=== PATIENT | female | born 1955 | race Caucasian/White ===

== ENCOUNTER → 2016-07-15 | Outpatient (CLI) | payer OTHER ==
[2016-07-15 16:35] LABS: Basophils # (A) 0.1 k/uL (0-0.2); Basophils % (A) 1 %; CHCM 32.6; Eosinophils # (A) 0.1 k/uL (0-0.7); Eosinophils % (A) 2 %; HCT 43.9 % (34.0-46.0); HDW 2.23; HGB 14.4 gm/dL (11.4-16.0); Luc # (Auto) 0.17; Luc % (Auto) 4; Lymphocytes # (A) 2.1 k/uL (1.0-4.8); Lymphocytes % (A) 45 %; MCH 31.2 pg (25.0-35.0); MCHC 32.7 g/dL (31.0-37.0); MCV 95.4 fL (80.0-100.0); Mean Platelet Volume 7.5; Monocytes # (A) 0.3 k/uL (0-1.0); Monocytes % (A) 7 %; Neutrophils % (A) 42 %; RDW 14.2 % (11.5-15.5); WBC 4.7 k/uL (3.8-10.6); WBC (Perox) 4.41
[2016-07-15 16:42] LABS: Anion Gap 10 mmol/L; Blood Urea Nitrogen 17 mg/dL (7-17); Carbon Dioxide 26 mmol/L (22-30); Chloride 107 mmol/L (98-107); Glucose 95 mg/dL (74-99); Non-African American GFR(MDRD) >60 (>60 ml/min/1.73 sqM); Potassium 4.1 mmol/L (3.5-5.1); Sodium 143 mmol/L (137-145)
[2016-07-15 16:44] LABS: Rheumatoid Factor, Qnt <9 IU/mL (<12)
[2016-07-15 17:42] LABS: Hepatitis C Virus IgG Ab Negative (Negative); Hepatitis C Virus IgG Index 0.01
[2016-07-15 19:56] LABS: Erythrocyte Sedimentation Rate 8 mm/hr (0-20)
[2016-07-16 02:00] LABS: HSV I IgG Interp POSITIVE (NEGATIVE); HSV II IgG Interp NEGATIVE (NEGATIVE)
[2016-07-16 04:32] LABS: Treponemal Ab Non-Reactive (Non-Reactive)
[2016-07-16 17:47] LABS: HIV-1/HIV-2 Ab Screen NONREAC (NON REAC)
[2016-07-17 06:16] LABS: Varicella IgM Antibody 0.29 INDEX (<=0.90)
== END | disposition home or self-care (01) ==
LOC: LABWHC1 15:55
PROVIDERS: ATTEND Internal Medicine Infectious Disease
DX: R21 Rash and other nonspecific skin eruption (principal)
CPT/HCPCS: 36415; 80048; 85025; 85652; 86431; 86694; 86695; 86696; 86780; 86787; 86803; 87340; 87389

== ENCOUNTER → 2016-10-10 | Outpatient (CLI) | payer OTHER ==
[2016-10-11 05:42] LABS: Varicella IgM Antibody 0.66 INDEX (<=0.90)
== END | disposition home or self-care (01) ==
LOC: LABWHC1 12:32
PROVIDERS: ATTEND Internal Medicine Infectious Disease
DX: R21 Rash and other nonspecific skin eruption (principal)
CPT/HCPCS: 36415; 86694; 86695; 86696; 86787

== ENCOUNTER 2017-02-11 08:12 | Day surgery (SDC) | payer OTHER ==
[~2017-02-11 08:12] MED LIST: PREMYELOGRAM MEDICATION REVIEW 1 EACH MISC PO NR
[2017-02-11 08:42] VITALS: RESP 16
[2017-02-11] MEDS ORDERED: ATROPINE SULFATE 0.1 MG/ML 10ML SYRINGE IV STA (09:40)
[2017-02-11] MEDS ORDERED: SODIUM CHLORIDE 0.9% 1,000 ML IV SCH (10:00)
--- NOTE | 2017-02-11 10:33 | FL ---
EXAMINATION TYPE: FL myelogram lumbosacral DATE OF EXAM: 02/11/2017 COMPARISON: NONE available at this location. HISTORY: Continued low back pain, prior surgery The procedure was explained to the patient, the risks complications and benefits. All questions were answered. Written and verbal informed consent was obtained. A timeout was performed. The L4-5 level was localized. Under full sterile technique a skin was cleansed with Betadine and the area anesthetized with 1% lidocaine. A 22-gauge spinal needle was placed. Prior to thecal sac access the patient became vagal with bradycardia. The procedure was halted and Tr endelenburg, oxygen and cool rags were administered. Patient remained bradycardic and 0.5 mg atropine was administered intravenously. Patient's heart rate returned to her normal range. The spinal need le was withdrawn. The procedure was aborted at this point. Patient was transferred to a rney and stayed within the hospital for monitoring. IMPRESSION: 1. Procedure was terminated during the examination. No diagnostic information was obtained.
[2017-02-11 14:02] VITALS: BP 101/62
[2017-02-11 14:13] VITALS: PULSE 62
== END 2017-02-11 14:12 | disposition home or self-care (01) ==
LOC: RADPROMAIN 08:12
PROVIDERS: ATTEND Neurological Surgery
DX: M47.26 Other spondylosis with radiculopathy, lumbar region (principal); Z53.8 Procedure and treatment not carried out for other reasons; Z68.26 Body mass index [BMI] 26.0-26.9, adult; M51.26 Other intervertebral disc displacement, lumbar region; R00.1 Bradycardia, unspecified; Z95.1 Presence of aortocoronary bypass graft; M79.7 Fibromyalgia; E07.9 Disorder of thyroid, unspecified; F32.9 Major depressive disorder, single episode, unspecified; Z79.899 Other long term (current) drug therapy; Z88.8 Allergy status to other drugs, medicaments and biological substances
CPT/HCPCS: 96374; 62304; Q9965; J0461; 62284

== ENCOUNTER 2017-03-19 08:31 | Day surgery (SDC) | payer OTHER ==
[~2017-03-19 08:31] MED LIST changes: -PREMYELOGRAM MEDICATION REVIEW 1 EACH MISC PO NR; +PREMYELOGRAM MEDICATION REVIEW 1 EACH MISC PO ONE
[2017-03-19] MEDS ORDERED: HYDROcodone/APAP 5-325MG 1 EACH TAB PO PRN (10:15)
--- NOTE | 2017-03-19 10:55 | CT ---
EXAMINATION TYPE: CT lumbar spine w con, FL myelogram lumbosacral DATE OF EXAM: 03/19/2017 COMPARISON: NONE HISTORY: Lower back pain. Prior fusion and lumbar laminectomy. Lumbar myelography was performed under fluoroscopic guidance. 1.25 minutes of fluoroscopic time was u tilized and 5 spot images submitted. Informed consent was obtained and all the patient's questions were answered. Utilizing standard ster ile technique the L2-3 level was localized utilizing a paraspinal approach. Appropriate local anesthe gemini was obtained with 1% lidocaine. Spinal needle was introduced into the thecal sac and 10 cc of Omn ipaque 240 was injected. The patient tolerated the procedure well and was sent to the CT suite withou t complication. Post myelogram CT: Post myelogram CT of the lumbar spine. Axial soft tissue window and bone window settings are submitte d. Reconstruction is obtained in the sagittal and coronal planes. L1-L2: Mild degenerative disc space narrowing. Circumferential disc bulge greatest posteriorly with m ild effacement of the ventral thecal sac. No evidence for central stenosis. Mild right foraminal encr oachment noted. Left neural foramen is patent. L2-L3: Mild degenerative disc space narrowing. Circumferential disc bulge [id number] in degree. Effacement of the ventral thecal sac with bilateral lateral recess stenosis. Constriction of the the luz marina sac without overt stenosis at this time. Mild right foraminal encroachment. L3-L4: Mild degenerative disc space narrowing. Circumferential disc bulge [id number] in degree. Effacement of the ventral thecal sac with bilateral lateral recess stenosis. Constriction of the the luz marina sac without overt stenosis at this time. Mild right foraminal encroachment. L4-L5: Postoperative changes of fusion with intervertebral body spacer in place. Pedicular screws are noted. Decompressive laminectomy. Alignment is anatomic. No evidence for recurrent or residual disc herniation or central stenosis. Streak artifact limits evaluation. L5-S1: Moderate disc space narrowing. No disc herniation protrusion or central stenosis. No facet luis eduardo int arthropathy. No evidence for foraminal encroachment. No paraspinal masses are identified. Lumbar segments are free of fracture. IMPRESSION: 1. Degenerative disc disease as discussed. 2. Posterior disc bulging with effacement of the ventral thecal sac greatest at L2-3 and L3-4 where t here is bilateral lateral recess stenosis. Constriction of the thecal sac without overt central steno sis at this time. 3. Postoperative changes as discussed. 1.
[2017-03-19 12:21] VITALS: BP 94/60; PULSE 55; RESP 16; TEMP 97.5
== END 2017-03-19 15:08 | disposition home or self-care (01) ==
LOC: RADPROMAIN 08:31 → 3OBS 10:20 → RADPROMAIN 15:08
PROVIDERS: ATTEND Neurological Surgery
DX: M51.36 Other intervertebral disc degeneration, lumbar region (principal); M51.26 Other intervertebral disc displacement, lumbar region; M48.06 Spinal stenosis, lumbar region; Z98.1 Arthrodesis status; J45.909 Unspecified asthma, uncomplicated; Z87.891 Personal history of nicotine dependence; M79.7 Fibromyalgia; F32.9 Major depressive disorder, single episode, unspecified; E07.9 Disorder of thyroid, unspecified; Z79.899 Other long term (current) drug therapy; Z88.8 Allergy status to other drugs, medicaments and biological substances
CPT/HCPCS: 36415; 62304; 72132; Q9966; 62284

== ENCOUNTER 2019-09-07 00:29 | Emergency (ER) | payer OTHER ==
[2019-09-07] MEDS ORDERED: SODIUM CHLORIDE 0.9% 1,000 ML IV STA (00:37)
--- NOTE | 2019-09-07 00:39 | ED ---
General Adult HPI - General Chief complaint: Eye Problems Stated complaint: Weakness, confusion Time Seen by Provider: 09/07/19 00:30 Source: patient, EMS Mode of arrival: EMS Limitations: no limitations - History of Present Illness Initial comments: Dictation was produced using [employer]aZO[employer] dictation software. please excuse any grammatical, word or spelling errors. Chief Complaint: 64-year-old field past medical history of back problems pr esents with paranoia History of Present Illness: 4-year-old female she states she's been paranoid at home. Patient reports that today she was afraid to go to her house. She states that she was brought in by EMS. She initially called law enforcement to her house to check set of her house. She feels as though there are microphones or cameras that her watching her. Patient is also hearing voices. She denies any suicidal or homicidality. Patient states she feels dehydrated. She however reports that she has been eating. Denies any psychiatric history. The ROS documented in this emergency department record has been reviewed and confirmed by me. Those systems with pertinent positive or negative responses have been documented in the HPI. All other systems are other negative and/or no ncontributory. PHYSICAL EXAM: General Impression: Alert and oriented x3, not in acute distress HEENT: Normocephalic atraumatic, extra-ocular movements intact, pupils equal and reactive to light bilaterally, mucous membranes moist. Cardiovascular: Heart regular rate and rhythm, S1&S2 audible, no murmurs, rubs or gallops Chest: Lungs clear to auscultation bilaterally, no rhonchi, no wheeze, no rales Abdomen: Bowel sounds present, abdomen soft, non-tender, non-distended, no organomegaly Musculoskeletal: Pulses present and equal in all extremities, no peripheral edema Motor: no focal deficits noted Neurological: CN II-XII grossly intact, no focal motor or sensory deficits noted Skin: Intact with no visualized rashes Psych: Anxious ED course: 64-year-old female presents for psychiatric evaluation. Vital signs upon arrival are within acceptable limits. Physical examination is benign. Laboratory evaluation obtained. CBC, metabolic panel is unremarkable. Urine drug screen is positive for benzos. Alcohol is negative. Patient is medically cleared. EPS evaluation patient provided safety plan measures. She was cleared for discharge for psychiatry. Patient complaining of some left eyelid pain. There was some erythema to bilateral eyelids. Clinical presentation concerning for blepharitis. Patient given erythromycin ointment to apply to the eyelids. She is given follow-up with digital tech. - Related Data Home Medications Medication Instructions Recorded Confirmed ALPRAZolam [Xanax] 0.5 mg PO DAILY PRN 02/03/17 03/19/17 Celecoxib [CeleBREX] 200 mg PO DAILY 02/03/17 03/19/17 Cyclobenzaprine [Flexeril] 10 mg PO DAILY 02/03/17 03/03/17 Diazepam [Valium] 5 mg PO TID 02/03/17 03/03/17 Ferrous Sulfate [Feosol] 28 mg PO DAILY 02/03/17 03/03/17 Levothyroxine Sodium [Synthroid] 50 mcg PO DAILY 02/03/17 03/03/17 Loratadine [Claritin] 10 mg PO HS 02/03/17 03/03/17 Lysine [l-Lysine] 500 mg PO DAILY 02/03/17 03/03/17 Modafinil [Provigil] 200 mg PO DAILY 02/03/17 03/03/17 Multivitamin/Iron/Folic Acid 1 each PO DAILY 02/03/17 03/03/17 [Centrum Adults Tablet] Topiramate [Topamax] 200 mg PO HS 02/03/17 03/03/17 Zinc 50 mg PO DAILY 02/03/17 03/03/17 Previous Rx's Medication Instructions Recorded Erythromycin Ophth Oint [Romycin 1 applic BOTH EYES BID #1 bottle 09/07/19 Ophth Oint] Allergies Allergy/AdvReac Type Severity Reaction Status Date / Time prednisone Allergy Rash/Hives Verified 03/19/17 09:16 Review of Systems ROS Statement: Those systems with pertinent positive or pertinent negative responses have been documented in the HPI. ROS Other: All systems not noted in ROS Statement are negative. Past Medical History Past Medical History: Fibromyalgia, GERD/Reflux, Thyroid Disorder Additional Past Medical History / Comment(s): shingles x3 History of Any Multi-Drug Resistant Organisms: None Reported Past Surgical History: Back Surgery, Tubal Ligation Additional Past Surgical History / Comment(s): 4 back related surgeries in last 2 years per pt. cervical fusion 2006 x2. laminectomy and fusion x2, Stenosis run in family per pt. laproscopic surgery due to miscarriages Past Anesthesia/Blood Transfusion Reactions: Postoperative Nausea & Vomiting (PONV) Past Psychological History: Anxiety, Depression Smoking Status: Former smoker Past Alcohol Use History: None Reported Past Drug Use History: None Reported - Past Family History Father Additional Family Medical History / Comment(s): spinal stenosis General Exam Limitations: no limitations Course Vital Signs 09/07/19 09/07/19 00:31 03:02 Temperature 97.4 F L 97.6 F Pulse Rate 76 75 Respiratory 20 16 Rate Blood Pressure 154/94 146/91 O2 Sat by Pulse 100 99 Oximetry Medical Decision Making - Lab Data Result diagrams: 09/07/19 01:06 09/07/19 01:06 Lab Results 09/07/19 09/07/19 09/07/19 Range/Units 01:06 01:06 01:06 WBC 7.6 (3.8-10.6) k/uL RBC 4.74 (3.80-5.40) m/uL Hgb 14.8 (11.4-16.0) gm/dL Hct 44.3 (34.0-46.0) % MCV 93.4 (80.0-100.0) fL MCH 31.3 (25.0-35.0) pg MCHC 33.5 (31.0-37.0) g/dL RDW 12.9 (11.5-15.5) % Plt Count 175 (150-450) k/uL Neutrophils % 85 % Lymphocytes % 11 % Monocytes % 4 % Eosinophils % 0 % Basophils % 0 % Neutrophils # 6.4 (1.3-7.7) k/uL Lymphocytes # 0.8 L (1.0-4.8) k/uL Monocytes # 0.3 (0-1.0) k/uL Eosinophils # 0.0 (0-0.7) k/uL Basophils # 0.0 (0-0.2) k/uL Sodium 137 (137-145) mmol/L Potassium 4.5 (3.5-5.1) mmol/L Chloride 101 (98-107) mmol/L Carbon Dioxide 29 (22-30) mmol/L Anion Gap 7 mmol/L BUN 17 (7-17) mg/dL Creatinine 0.45 L (0.52-1.04) mg/dL Est GFR (CKD-EPI)AfAm >90 (>60 ml/min/1.73 sqM) Est GFR (CKD-EPI)NonAf >90 (>60 ml/min/1.73 sqM) Glucose 146 H (74-99) mg/dL Calcium 9.4 (8.4-10.2) mg/dL Urine Opiates Screen (NotDetected) Ur Oxycodone Screen (NotDetected) Urine Methadone Screen (NotDetected) Ur Propoxyphene Screen (NotDetected) Ur Barbiturates Screen (NotDetected) U Tricyclic Antidepress (NotDetected) Ur Phencyclidine Scrn (NotDetected) Ur Amphetamines Screen (NotDetected) U Methamphetamines Scrn (NotDetected) U Benzodiazepines Scrn (NotDetected) Urine Cocaine Screen (NotDetected) U Marijuana (THC) Screen (NotDetected) Serum Alcohol <10 mg/dL 09/07/19 Range/Units 02:06 WBC (3.8-10.6) k/uL RBC (3.80-5.40) m/uL Hgb (11.4-16.0) gm/dL Hct (34.0-46.0) % MCV (80.0-100.0) fL MCH (25.0-35.0) pg MCHC (31.0-37.0) g/dL RDW (11.5-15.5) % Plt Count (150-450) k/uL Neutrophils % % Lymphocytes % % Monocytes % % Eosinophils % % Basophils % % Neutrophils # (1.3-7.7) k/uL Lymphocytes # (1.0-4.8) k/uL Monocytes # (0-1.0) k/uL Eosinophils # (0-0.7) k/uL Basophils # (0-0.2) k/uL Sodium (137-145) mmol/L Potassium (3.5-5.1) mmol/L Chloride (98-107) mmol/L Carbon Dioxide (22-30) mmol/L Anion Gap mmol/L BUN (7-17) mg/dL Creatinine (0.52-1.04) mg/dL Est GFR (CKD-EPI)AfAm (>60 ml/min/1.73 sqM) Est GFR (CKD-EPI)NonAf (>60 ml/min/1.73 sqM) Glucose (74-99) mg/dL Calcium (8.4-10.2) mg/dL Urine Opiates Screen Not Detected (NotDetected) Ur Oxycodone Screen Not Detected (NotDetected) Urine Methadone Screen Not Detected (NotDetected) Ur Propoxyphene Screen Not Detected (NotDetected) Ur Barbiturates Screen Not Detected (NotDetected) U Tricyclic Antidepress Not Detected (NotDetected) Ur Phencyclidine Scrn Not Detected (NotDetected) Ur Amphetamines Screen Not Detected (NotDetected) U Methamphetamines Scrn Not Detected (NotDetected) U Benzodiazepines Scrn Detected H (NotDetected) Urine Cocaine Screen Not Detected (NotDetected) U Marijuana (THC) Screen Not Detected (NotDetected) Serum Alcohol mg/dL Disposition Clinical Impression: Paranoia, Blepharitis Disposition: HOME SELF-CARE Condition: Good Instructions (If sedation given, give patient instructions): Blepharitis (ED) Prescriptions: Erythromycin Ophth Oint [Romycin Ophth Oint] 1 applic BOTH EYES BID #1 bottle Is patient prescribed a controlled substance at d/c from ED?: No Referrals: Rodolfo Mendez MD [STAFF PHYSICIAN] - 1-2 days Time of Disposition: 05:29
[2019-09-07 01:14] LABS: Basophils % (A) 0 %; Eosinophils % (A) 0 %; HCT 44.3 % (34.0-46.0); HGB 14.8 gm/dL (11.4-16.0); Lymphocytes # (A) 0.8 k/uL (1.0-4.8); Lymphocytes % (A) 11 %; MCH 31.3 pg (25.0-35.0); MCHC 33.5 g/dL (31.0-37.0); MCV 93.4 fL (80.0-100.0); Mean Platelet Volume 8.3; Monocytes # (A) 0.3 k/uL (0-1.0); Monocytes % (A) 4 %; Neutrophils # (A) 6.4 k/uL (1.3-7.7); Neutrophils % (A) 85 %; Platelet Count 175 k/uL (150-450); RBC 4.74 m/uL (3.80-5.40); RDW 12.9 % (11.5-15.5); WBC 7.6 k/uL (3.8-10.6)
[2019-09-07 01:23] LABS: African American GFR (CKD) >90 (>60 ml/min/1.73 sqM); Anion Gap 7 mmol/L; Blood Urea Nitrogen 17 mg/dL (7-17); Calcium 9.4 mg/dL (8.4-10.2); Carbon Dioxide 29 mmol/L (22-30); Chloride 101 mmol/L (98-107); Glucose 146 mg/dL (74-99); Non-African American GFR(CKD) >90 (>60 ml/min/1.73 sqM); Potassium 4.5 mmol/L (3.5-5.1); Sodium 137 mmol/L (137-145)
[2019-09-07 02:48] LABS: Amphetamine Screen,Urine Not Detected (NotDetected); Barbiturate Screen,Urine Not Detected (NotDetected); Benzodiazepines Screen,Urine Detected (NotDetected); Cocaine Screen,Urine Not Detected (NotDetected); Methadone Screen, Urine Not Detected (NotDetected); Opiate Screen,Urine Not Detected (NotDetected); Oxycodone Screen, Urine Not Detected (NotDetected); Phencyclidine Screen,Urine Not Detected (NotDetected); Tricyclic Antidepressant,Urine Not Detected (NotDetected); Urn Cannabinoid Scrn Not Detected (NotDetected)
[2019-09-07 03:03] VITALS: BP 146/91; PULSE 75; RESP 16; TEMP 97.6
[2019-09-07] MEDS ORDERED: ACETAMINOPHEN TAB 500 MG TAB PO STA (03:53)
--- NOTE | 2019-09-07 05:23 | CT ---
EXAMINATION TYPE: CT brain wo con DATE OF EXAM: 09/07/2019 COMPARISON: None HISTORY: Confusion CT DLP: 1098.4 mGycm Automated exposure control for dose reduction was used. Ventricles have normal size. There is no mass effect nor midline shift. There is no sign of intracran ial hemorrhage. The calvarium is intact. There is no evidence of cerebral edema. IMPRESSION: Negative unenhanced head CT scan.
[2019-09-07] MEDS ORDERED: ERYTHROMYCIN 5 MG/GM OPHTH OINT 3.5 GM TUBE BOTH EYES STA (05:43)
== END 2019-09-07 06:25 | disposition home or self-care (01) ==
LOC: EC 00:29
DX: F22 Delusional disorders (principal); H01.006 Unspecified blepharitis left eye, unspecified eyelid; F41.9 Anxiety disorder, unspecified; F32.9 Major depressive disorder, single episode, unspecified; R82.5 Elevated urine levels of drugs, medicaments and biological substances; M79.7 Fibromyalgia; E07.9 Disorder of thyroid, unspecified; Z87.891 Personal history of nicotine dependence; Z88.8 Allergy status to other drugs, medicaments and biological substances; Z79.1 Long term (current) use of non-steroidal anti-inflammatories (NSAID); Z79.890 Hormone replacement therapy; Z79.899 Other long term (current) drug therapy; Z98.1 Arthrodesis status
CPT/HCPCS: 36415; 70450; 80048; 80306; 80320; 85025; 96360; 99285

== ENCOUNTER 2019-10-21 10:35 | Emergency (ER) | payer OTHER ==
--- NOTE | 2019-10-21 10:55 | ED ---
General Adult HPI - General Stated complaint: Mental health Time Seen by Provider: 10/21/19 10:38 Source: patient, EMS, RN notes reviewed - History of Present Illness Initial comments: 64-year-old female with a past medical history of fibromyalgia, GERD, thyroid disorder presents to the emergency department for psychiatric evaluation. Patient was apparently doing about 50 donuts in a parking lot when the police were called. EMS was then called because there is concerns for psychiatric problems. Patient denies taking any psychiatric medications but EMS does state she was flagged as an emotionally disturbed individual for them. Patient's speech is very pressured and tangential. She is talking about receiving threats from her family as well as talking about her marriage, and pastors calling her at home. She states that she feels "fine."Patient has no other complaints at this time including shortness of breath, chest pain, abdominal pain, nausea or vomiting, headache, or visual changes. - Related Data Home Medications Medication Instructions Recorded Confirmed Celecoxib [CeleBREX] 200 mg PO DAILY 02/03/17 10/21/19 Cyclobenzaprine [Flexeril] 10 mg PO TID PRN 02/03/17 10/21/19 Loratadine [Claritin] 10 mg PO HS 02/03/17 10/21/19 Modafinil [Provigil] 200 mg PO DAILY 02/03/17 10/21/19 Zinc 50 mg PO DAILY 02/03/17 10/21/19 Ascorbic Acid [Vitamin C] 1,000 mg PO DAILY 10/21/19 10/21/19 Calcium Carbonate/Vitamin D3 1 tab PO DAILY 10/21/19 10/21/19 [Calcium 600-Vit D3 800 Caplet] Cholecalciferol [Vitamin D3 (25 2,000 unit PO DAILY 10/21/19 10/21/19 Mcg = 1000 Iu)] Ferrous Sulfate [Slow Fe] 142 mg PO DAILY 10/21/19 10/21/19 Ibuprofen [Motrin Ib] 400 mg PO Q8H PRN 10/21/19 10/21/19 Levothyroxine Sodium [Synthroid] 100 mcg PO DAILY 10/21/19 10/21/19 Magnesium Oxide [Magox 400] 400 mg PO DAILY 10/21/19 10/21/19 Topiramate [Topamax] 200 mg PO HS 10/21/19 10/21/19 Vitamin A 8,000 unit PO DAILY 10/21/19 10/21/19 Vitamin B Complex 1 cap PO DAILY 10/21/19 10/21/19 Allergies Allergy/AdvReac Type Severity Reaction Status Date / Time prednisone Allergy Rash/Hives Verified 10/21/19 12:27 Review of Systems ROS Statement: Those systems with pertinent positive or pertinent negative responses have been documented in the HPI. ROS Other: All systems not noted in ROS Statement are negative. Past Medical History Past Medical History: Fibromyalgia, GERD/Reflux, Thyroid Disorder Additional Past Medical History / Comment(s): shingles x3 History of Any Multi-Drug Resistant Organisms: None Reported Past Surgical History: Back Surgery, Tubal Ligation Additional Past Surgical History / Comment(s): 4 back related surgeries in last 2 years per pt. cervical fusion 2006 x2. laminectomy and fusion x2, Stenosis run in family per pt. laproscopic surgery due to miscarriages Past Anesthesia/Blood Transfusion Reactions: Postoperative Nausea & Vomiting (PONV) Past Psychological History: Anxiety, Depression Smoking Status: Former smoker Past Alcohol Use History: None Reported Past Drug Use History: None Reported - Past Family History Father Additional Family Medical History / Comment(s): spinal stenosis General Exam General appearance: alert, anxious Head exam: Present: atraumatic, normocephalic, normal inspection Eye exam: Present: normal appearance, PERRL, EOMI. Absent: scleral icterus, conjunctival injection, periorbital swelling ENT exam: Present: normal exam, mucous membranes moist Neck exam: Present: normal inspection, full ROM. Absent: tenderness, meningismus, lymphadenopathy Respiratory exam: Present: normal lung sounds bilaterally. Absent: respiratory distress, wheezes, rales, rhonchi, stridor Cardiovascular Exam: Present: regular rate, normal rhythm, normal heart sounds. Absent: systolic murmur, diastolic murmur, rubs, gallop, clicks GI/Abdominal exam: Present: soft, normal bowel sounds. Absent: distended, tenderness, guarding, rebound, rigid Psychiatric exam: Present: manic Course Vital Signs 10/21/19 10:58 Temperature 99.1 F Pulse Rate 89 Respiratory 20 Rate Blood Pressure 133/98 O2 Sat by Pulse 100 Oximetry Medical Decision Making - Medical Decision Making Patient was evaluated by EPS, recommending inpatient management. Certification filled out by Dr. Marrero. [facility] Laboratory evaluation was added by EPS nurse. - Lab Data Lab Results 10/21/19 Range/Units 11:08 Urine Opiates Screen Not Detected (NotDetected) Ur Oxycodone Screen Not Detected (NotDetected) Urine Methadone Screen Not Detected (NotDetected) Ur Propoxyphene Screen Not Detected (NotDetected) Ur Barbiturates Screen Not Detected (NotDetected) U Tricyclic Antidepress Not Detected (NotDetected) Ur Phencyclidine Scrn Not Detected (NotDetected) Ur Amphetamines Screen Not Detected (NotDetected) U Methamphetamines Scrn Not Detected (NotDetected) U Benzodiazepines Scrn Not Detected (NotDetected) Urine Cocaine Screen Not Detected (NotDetected) U Marijuana (THC) Screen Not Detected (NotDetected) Disposition Clinical Impression: Acute psychosis Disposition: TRANSFER TO PSYCH HOSP/UNIT Condition: Fair Is patient prescribed a controlled substance at d/c from ED?: No Referrals: [facility],Clinic [Primary Care Provider] - 1-2 days Time of Disposition: 12:28
[2019-10-21 11:40] LABS: Amphetamine Screen,Urine Not Detected (NotDetected); Barbiturate Screen,Urine Not Detected (NotDetected); Benzodiazepines Screen,Urine Not Detected (NotDetected); Cocaine Screen,Urine Not Detected (NotDetected); Methadone Screen, Urine Not Detected (NotDetected); Opiate Screen,Urine Not Detected (NotDetected); Oxycodone Screen, Urine Not Detected (NotDetected); Phencyclidine Screen,Urine Not Detected (NotDetected); Tricyclic Antidepressant,Urine Not Detected (NotDetected); Urn Cannabinoid Scrn Not Detected (NotDetected)
[2019-10-21] MEDS ORDERED: LORazepam 1 MG TAB PO STA ×2 (12:13→18:31)
[2019-10-21 14:07] LABS: Amorphous Sediment,Urine Few /hpf; Appearance,Urine Turbid (Clear); Bacteria,Urine Rare /hpf; Bilirubin,Urine Negative (Negative); Blood,Urine Negative (Negative); Color,Urine Yellow; Glucose,Urine (UA) Negative (Negative); Ketones,Urine Negative (Negative); Leukocyte Esterase,Urine Small (Negative); Mucus,Urine Rare /hpf; Nitrite,Urine Positive (Negative); Protein,Urine Trace (Negative); RBC,Urine 2 /hpf (0-5); Specific Gravity,Urine 1.018 (1.001-1.035); Squamous Epithelial Cell,Urine 1 /hpf (0-4); Urobilinogen,Urine <2.0 mg/dL (<2.0); WBC,Urine 10 /hpf (0-5)
[2019-10-21 14:09] LABS: Basophils # (A) 0.1 k/uL (0-0.2); Basophils % (A) 1 %; Eosinophils # (A) 0.1 k/uL (0-0.7); Eosinophils % (A) 1 %; HCT 40.8 % (34.0-46.0); HGB 13.3 gm/dL (11.4-16.0); Lymphocytes # (A) 1.8 k/uL (1.0-4.8); Lymphocytes % (A) 30 %; MCHC 32.5 g/dL (31.0-37.0); MCV 95.3 fL (80.0-100.0); Mean Platelet Volume 8.6; Monocytes # (A) 0.5 k/uL (0-1.0); Monocytes % (A) 8 %; Neutrophils # (A) 3.3 k/uL (1.3-7.7); Neutrophils % (A) 56 %; Platelet Count 206 k/uL (150-450); RBC 4.28 m/uL (3.80-5.40)
[2019-10-21 14:19] LABS: ALT 14 U/L (4-34); AST 23 U/L (14-36); African American GFR (CKD) >90 (>60 ml/min/1.73 sqM); Albumin 3.8 g/dL (3.5-5.0); Alkaline Phosphatase 111 U/L (38-126); Anion Gap 7 mmol/L; Blood Urea Nitrogen 16 mg/dL (7-17); Calcium 9.3 mg/dL (8.4-10.2); Carbon Dioxide 28 mmol/L (22-30); Chloride 104 mmol/L (98-107); Glucose 92 mg/dL (74-99); Non-African American GFR(CKD) >90 (>60 ml/min/1.73 sqM); Potassium 3.1 mmol/L (3.5-5.1); Sodium 139 mmol/L (137-145); Total Bilirubin 0.6 mg/dL (0.2-1.3); Total Protein 6.4 g/dL (6.3-8.2)
[2019-10-22 05:21] VITALS: RESP 16; TEMP 97.9
[2019-10-22 08:35] VITALS: BP 118/69; PULSE 71
== END 2019-10-22 08:35 ==
LOC: EC 10:35
DX: F23 Brief psychotic disorder (principal); E07.9 Disorder of thyroid, unspecified; F41.9 Anxiety disorder, unspecified; F31.9 Bipolar disorder, unspecified; Z79.1 Long term (current) use of non-steroidal anti-inflammatories (NSAID); Z79.890 Hormone replacement therapy; Z79.899 Other long term (current) drug therapy; Z88.8 Allergy status to other drugs, medicaments and biological substances; Z87.891 Personal history of nicotine dependence
CPT/HCPCS: 36415; 80053; 80306; 81001; 82075; 85025; 87635; 99285

== ENCOUNTER → 2020-09-01 | Outpatient (CLI) | payer OTHER ==
--- NOTE | 2020-09-04 11:19 | MM ---
Reason for exam: screening (asymptomatic). Last mammogram was performed 5 years and 6 months ago. Physical Findings: A clinical breast exam by your physician is recommended on an annual basis and results should be correlated with mammographic findings. MG Screening Mammo w CAD Bilateral CC and MLO view(s) were taken. Prior study comparison: March 08, 2015, mammogram, performed at [facility]. June 21, 2013, mammogram, performed at [facility]. The breast tissue is heterogeneously dense. This may lower the sensitivity of mammography. Focal asymmetry central right breast for which additional views recommended. ASSESSMENT: Incomplete: need additional imaging evaluation, BI-RAD 0 RECOMMENDATION: Special view mammogram of the right breast. (3D) If lesion persists on supplemental views, image directed ultrasound is recommended. [facility] will attempt to contact patient to return for supplemental views and ultrasound if indicated.
== END | disposition home or self-care (01) ==
LOC: RADMAMWWP 10:54
PROVIDERS: ATTEND Family Medicine
DX: Z12.31 Encounter for screening mammogram for malignant neoplasm of breast (principal)
CPT/HCPCS: 77067

== ENCOUNTER → 2020-10-13 | Outpatient (CLI) | payer OTHER ==
--- NOTE | 2020-10-13 12:26 | MM ---
Reason for exam: additional evaluation requested from abnormal screening. Last mammogram was performed 1 month ago. History: Patient is postmenopausal. Physical Findings: Nurse did not find any significant physical abnormalities on exam. MG Work Up Mamm w CAD RT Spot compression CC, spot compression MLO, and LM view(s) were taken of the right breast. Prior study comparison: September 01, 2020, bilateral MG screening mammo w CAD. March 08, 2015, mammogram, performed at [facility]. The breast tissue is heterogeneously dense. This may lower the sensitivity of mammography. Some vague central density remains on the CC view with spot compression, less defined from the initial screening exam. No clear persisting abnormality on spot MLO. These results were verbally communicated with the patient and result sheet given to the patient on 10/13/20. ASSESSMENT: Incomplete: need additional imaging evaluation, BI-RAD 0 RECOMMENDATION: Ultrasound of the right breast. (12-1 o'clock and 5-6 o'clock)
--- NOTE | 2020-10-13 12:27 | USB ---
Reason for exam: additional evaluation requested from abnormal screening. History: Patient is postmenopausal. US Breast Workup Limited RT Technologist: Hannah Au Right limited breast ultrasound including focal area of concern, retroareolar and axilla demonstrates no cystic or solid lesion seen. Scanned 12-1 o'clock and 5-6 o'clock. These results were verbally communicated with the patient and result sheet given to the patient on 10/13/20. ASSESSMENT: Probably benign, BI-RAD 3 RECOMMENDATION: Follow-up diagnostic mammogram of the right breast in 6 months.
== END | disposition home or self-care (01) ==
LOC: RADMAMWWP 10:26
DX: R92.2 Inconclusive mammogram (principal)
CPT/HCPCS: 77065

== ENCOUNTER → 2021-04-17 | Outpatient (CLI) | payer OTHER ==
--- NOTE | 2021-04-17 11:50 | MM ---
Reason for exam: follow-up at short interval from prior study. Last mammogram was performed 6 months ago. History: Patient is postmenopausal. Took hormonal contraceptives for 12 years. Physical Findings: Nurse did not find any significant physical abnormalities on exam. MG Diagnostic Mammo RT w CAD CC and MLO view(s) were taken of the right breast. Prior study comparison: September 01, 2020, bilateral MG screening mammo w CAD. The breast tissue is heterogeneously dense. This may lower the sensitivity of mammography. There is no discrete abnormality. These results were verbally communicated with the patient and result sheet given to the patient on 04/17/21. ASSESSMENT: Negative, BI-RAD 1 RECOMMENDATION: Return to routine screening mammogram schedule for both breasts. Back on schedule for September 2021.
== END | disposition home or self-care (01) ==
LOC: RADMAMWWP 11:03
PROVIDERS: ATTEND Nurse Practitioner Acute Care
DX: R92.8 Other abnormal and inconclusive findings on diagnostic imaging of breast (principal)
CPT/HCPCS: 77065

== ENCOUNTER → 2023-01-23 | Outpatient (CLI) | payer OTHER ==
--- NOTE | 2023-01-23 14:56 | BD ---
EXAMINATION TYPE: Axial Bone Density DATE OF EXAM: 01/23/2023 CLINICAL HISTORY: 67 years old Female. ICD-10 CODE: M81.6 OSTEOPOROSIS Height: 5 ft 6in Weight: 151 FRAX RISK QUESTIONS: Alcohol (3 or more units per day): no Family History (Parent hip fracture): yes Glucocorticoids (More than 3mos): no (Ex: prednisone, prednisolone, methylprednisolone, dexamethasone, and hydrocortisone). History of Fracture in Adulthood: yes Secondary Osteoporosis: 1. Type 1 Diabetes: no 2. Hyperthyroidism: no 3. Menopause before 45: no 4. Malnutrition: no 5. Chronic liver disease: no Rheumatoid Arthritis: yes Current Tobacco Use: no RISK FACTORS HISTORY OF: Surgery to Spine/Hip(right/left)/Wrist (right/left): lumbar surg nd 2015 Family History of Osteoporosis: no Active: yes Diet low in dairy products/other sources of calcium: no Postmenopausal woman: yes Take estrogen and/or progesterone medications: no Lost more than 2 inches in height since high school: yes Frequent falls: no Poor Health: good Hyperparathyroidism: no Adrenal Insufficiency: no MEDICATIONS: Thyroid Medications: yes Which medication: synthroid How Long: approx 6-10 years Additional Medications: synthroid, Baclofen, claritan, modafinel Additional History: EXAM MEASUREMENTS: Bone mineral density about the R hip (g/cm2): 0.675 Bone mineral density about the L hip (g/cm2): 0.653 T Score values are as follows: -----R Neck: -2.6 -----L Neck: -2.8 -----R Total: -2.9 -----L Total: -2.9 Z Score values are as follows: -----R Neck: -1.1 -----L Neck: -1.3 -----R Total: -1.7 -----L Total: -1.7 baseline Bone mineral density about the L Wrist (g/cm2): 0.501 T Score values are as follows: -----Dist. R+U: -3.3 -----Prox. R+U: -2.3 -----Radius total: -2.9 Z Score values are as follows: -----Dist. R+U: -1.8 -----Prox. R+U: -0.8 -----Radius total: -1.3 baseline FRAX%s: The graph provided illustrates a 39.4 % chance for a major osteoporotic fx and a 9.2 % chance for the hips probability for fx in 10 years time. IMPRESSION: Osteoporosis (T Score less than -2.5). There is increased fracture risk and therapy is usually indicated based on age. Re-Screen 1-2 years. NOTE: T-SCORE=SD OF THE YOUNG ADULT MEAN.
== END | disposition home or self-care (01) ==
LOC: RADBDWWP 11:10
DX: M81.6 Localized osteoporosis [Lequesne] (principal); M85.841 Other specified disorders of bone density and structure, right hand; Z78.0 Asymptomatic menopausal state
CPT/HCPCS: 77080

== ENCOUNTER → 2024-01-14 | Outpatient (CLI) | payer OTHER ==
--- NOTE | 2024-01-15 09:30 | MM ---
Reason for Exam: Screening (asymptomatic). Last mammogram was performed 3 year(s) and 4 month(s) ago. Patient History: Menarche at age 16. First Full-Term at age 22. Postmenopausal. Patient used Hormonal Contraceptives for 12 years. Risk Values: Luana 5 year model risk: 1.4%. NCI Lifetime model risk: 4.8%. Prior Study Comparison: 09/01/2020 Bilateral Screening Mammogram, [facility]. 10/13/2020 Right Diagnostic Mammogram, [facility]. 04/17/2021 Right Diagnostic Mammogram, [facility]. Tissue Density: The breasts are heterogeneously dense, which may obscure small masses. Findings: Analyzed By CAD. There is no suspicious group of microcalcifications. There is nodular densities in the central portion of the right breast for which spot compression view recommended. Benign-appearing calcifications. Overall Assessment: Incomplete: need additional imaging evaluation, BI-RAD 0 Management: Diagnostic Mammogram of the right breast. . Patient should continue monthly self-breast exams. A clinical breast exam by your physician is recommended on an annual basis. This exam should not preclude additional follow-up of suspicious palpable abnormalities. Note on Luana scores and lifetime risk: 1. A Luana score greater than 3% is considered moderate risk. If this is the case, consider specialist referral to assess eligibility for a risk reducing agent. 2. If overall lifetime risk for the development of breast cancer is 20% or higher, the patient may qualify for future screening with alternating mammogram and breast MRI. Electronically signed and approved by: Loc Dye M.D. Radiologis
== END | disposition home or self-care (01) ==
LOC: RADMAMWWP 09:58
PROVIDERS: ATTEND Family Medicine
DX: Z12.31 Encounter for screening mammogram for malignant neoplasm of breast (principal); R92.333 Mammographic heterogeneous density, bilateral breasts; Z78.0 Asymptomatic menopausal state
CPT/HCPCS: 77063; 77067

== ENCOUNTER → 2024-01-22 | Outpatient (CLI) | payer OTHER ==
--- NOTE | 2024-01-22 11:02 | MM ---
Reason for Exam: Additional evaluation requested from abnormal screening. Last screening mammogram was performed less than 1 month ago. Patient History: Menarche at age 16. First Full-Term at age 22. Postmenopausal. Patient used Hormonal Contraceptives for 12 years. Sister had breast cancer at or over age 50. Risk Values: Luana 5 year model risk: 3.0%. NCI Lifetime model risk: 9.9%. Prior Study Comparison: 06/21/2013 Screening Mammogram, [facility]. 03/08/2015 Screening Mammogram, [facility]. 09/01/2020 Bilateral Screening Mammogram, [facility]. 10/13/2020 Right Diagnostic Mammogram, [facility]. 04/17/2021 Right Diagnostic Mammogram, [facility]. 01/14/2024 Bilateral MG 3D screening mammo w/cad, [facility]. Tissue Density: Right: The breasts are heterogeneously dense, which may obscure small masses. Findings: Analyzed By CAD. At the approximate right 11 to 12:00 position there is a 9 mm nodular density 6 cm from the nipple. Ultrasound is recommended. Overall Assessment: Incomplete: need additional imaging evaluation, BI-RAD 0 Management: Diagnostic Breast Ultrasound of the right breast. . Results were given to the patient verbally at the time of exam. Patient should continue monthly self-breast exams. A clinical breast exam by your physician is recommended on an annual basis. This exam should not preclude additional follow-up of suspicious palpable abnormalities. Note on Luana scores and lifetime risk: 1. A Luana score greater than 3% is considered moderate risk. If this is the case, consider specialist referral to assess eligibility for a risk reducing agent. 2. If overall lifetime risk for the development of breast cancer is 20% or higher, the patient may qualify for future screening with alternating mammogram and breast MRI. Electronically signed and approved by: Troy Costa M.D. Radiologis
--- NOTE | 2024-01-22 11:56 | USB ---
Reason for Exam: Additional evaluation requested from abnormal screening. Patient History: Menarche at age 16. First Full-Term at age 22. Postmenopausal. Patient used Hormonal Contraceptives for 12 years. Sister had breast cancer at or over age 50. Risk Values: Luana 5 year model risk: 3.0%. NCI Lifetime model risk: 9.9%. Technique: Method: Targeted. Prior Study Comparison: 10/13/2020 Right Diagnostic Mammogram, [facility]. 04/17/2021 Right Diagnostic Mammogram, [facility]. 01/14/2024 Bilateral MG 3D screening mammo w/cad, [facility]. Findings: The upper section of the breast of the right breast, the axilla of the right breast and the retroareolar of the right breast were scanned. No solid or cystic masses are identified.. Overall Assessment: Probably benign, BI-RAD 3 Management: Diagnostic Mammogram of the right breast in 6 months. A clinical breast exam by your physician is recommended on an annual basis and results should be correlated with mammographic findings. This exam should not preclude additional follow-up of suspicious palpable abnormalities. Results were given to the patient verbally at the time of exam. Electronically signed and approved by: Troy Costa M.D. Radiologis
== END | disposition home or self-care (01) ==
LOC: RADMAMWWP 10:20
PROVIDERS: ATTEND Family Medicine
DX: R92.8 Other abnormal and inconclusive findings on diagnostic imaging of breast (principal); R92.333 Mammographic heterogeneous density, bilateral breasts; Z78.0 Asymptomatic menopausal state; Z80.3 Family history of malignant neoplasm of breast
CPT/HCPCS: 77061; 77065

== ENCOUNTER → 2024-07-27 | Outpatient (CLI) | payer OTHER ==
--- NOTE | 2024-07-27 08:44 | MM ---
Reason for Exam: Follow-up at short interval from prior study. Last screening mammogram was performed 7 month(s) ago. Patient History: Menarche at age 16. First Full-Term at age 22. Postmenopausal. Patient used Hormonal Contraceptives for 12 years. Sister had breast cancer at or over age 50. Risk Values: Luana 5 year model risk: 3.0%. NCI Lifetime model risk: 9.5%. Prior Study Comparison: 04/17/2021 Right Diagnostic Mammogram, [facility]. 01/14/2024 Bilateral MG 3D screening mammo w/cad, [facility]. 01/22/2024 Right MG 3D work up w/cad RT, [facility]. Tissue Density: Right: The breasts are heterogeneously dense, which may obscure small masses. Findings: Analyzed By CAD. No new suspicious mass or worrisome cluster of microcalcification in the right breast. Overall Assessment: Negative, BI-RAD 1 Management: Screening Mammogram of both breasts in 6 months. Back on annual schedule. Results were given to the patient verbally at the time of exam. Patient should continue monthly self-breast exams. A clinical breast exam by your physician is recommended on an annual basis. This exam should not preclude additional follow-up of suspicious palpable abnormalities. Note on Luana scores and lifetime risk: 1. A Luana score greater than 3% is considered moderate risk. If this is the case, consider specialist referral to assess eligibility for a risk reducing agent. 2. If overall lifetime risk for the development of breast cancer is 20% or higher, the patient may qualify for future screening with alternating mammogram and breast MRI. [facility], , 07/27/2024 8:42 AM. Electronically signed and approved by: Rodolfo Akins M.D.
== END | disposition home or self-care (01) ==
LOC: RADMAMWWP 08:03
PROVIDERS: ATTEND Family Medicine
DX: R92.8 Other abnormal and inconclusive findings on diagnostic imaging of breast (principal); R92.331 Mammographic heterogeneous density, right breast; Z78.0 Asymptomatic menopausal state; Z80.3 Family history of malignant neoplasm of breast
CPT/HCPCS: 77061; 77065